=== PATIENT | female | born 1980 | race Caucasian/White ===

== ENCOUNTER 2021-04-22 05:53 | Inpatient (IN) ==
--- NOTE | 2021-04-14 13:33 | Anesthesiology Consultation ---
Date of Service April 14, 2021 Assessment & Plan (1) Encounter for pre-operative examination: Chart Review Chart Review: entry level finance initiated Per nursing assessment 04/14/2021, patient denies any recent travel. No known Covid infection in the past 90 days. Patient is fully vaccinated for Covid. No known Covid positive exposures or Covid related symptoms. Preop Covid testing scheduled 04/19/21= will await results History Surgery Operation Date: 04/22/21 07:30 Proposed Procedures p Repeat - Amado Guajardo MD Height/Weight Height: 5 ft 6 in Weight: 77.111 kg Allergies Allergy/AdvReac Type Severity Reaction Status Date / Time NSAIDS (Non-Steroidal Allergy hives Verified 04/14/21 11:52 Anti-Inflamma Medications Home Medications Medication Instructions Recorded Confirmed Last Taken albuterol 90 mcg/actuation aerosol 90 mcg INHALATION DIRECTED PRN 05/06/20 04/14/21 Unknown inhaler azelastine 137 mcg (0.1 %) nasal 1 spray INTRANASAL BID PRN 05/06/20 04/14/21 Unknown spray aerosol budesonide 32 mcg/actuation nasal 1 spray INTRANASAL DAILY PRN 05/06/20 04/14/21 Unknown spray cetirizine 10 mg capsule (All Day 10 mg PO BID 05/06/20 04/14/21 Unknown Allergy (cetirizine)) ferrous sulfate 325 mg (65 mg 325 mg PO QAM 04/14/21 04/14/21 Unknown iron) tablet (Iron (ferrous sulfate)) vitamins no.144-folic 2 tab PO QAM 04/14/21 04/14/21 Unknown acid 400 mcg chewable tablet () Past Medical History Medical History Asthma Aggravated by but only mild/stable, PRN inhaler approx once a week Esophagitis No meds per pt> diet control GERD (gastroesophageal reflux disease) History of anesthesia reaction with last , severe migraine afterward History of herpes zoster Iron deficiency anemia Very mild > re-test was WNL Migraine Past Family History Family History Grandmother Diabetes Grandfather Diabetes Past Surgical History Surgical History History of section x1 History of colonoscopy History of dilatation and curettage History of esophagogastroduodenoscopy (EGD) [place] teeth extracted Social History Smoking Status: Never smoker Do You Dip or Chew Tobacco: No Hx Alcohol Use: No Hx Substance Use: No substance use type: does not use Testing Laboratory Results 04/02/21= WBC: 11.48 H/H: 12.2/37.5 PLATELETS: 198
[2021-04-22] MEDS ORDERED: LACTATED RINGER'S 1,000 ML IV SCH ×2 (06:00→10:00)
[2021-04-22] MEDS ORDERED: CITRIC ACID/SODIUM CITRATE 15 ML UDC PO SCH ×2 (06:00)
[2021-04-22] MEDS ORDERED: ceFAZolin 2000MG 2,000 MG/15 ML SYR IV SCH (06:00)
[2021-04-22 06:46] LABS: Basophils # (auto) 0.02 K/uL (0-0.2); Basophils % (auto) 0.2 %; Eosinophils # (auto) 0.36 K/uL (0-0.5); Eosinophils % (auto) 3.3 %; Hematocrit (blood only) 36.9 % (37-47); Hemoglobin 12.6 g/dL (12.0-16.0); Immature Granulocytes # (auto) 0.03 K/uL (0.00-0.02); Immature Granulocytes % (auto) 0.3 %; Lymphocytes # (auto) 2.22 K/uL (1.2-3.4); Lymphocytes % (auto) 20.2 %; Mean Corpuscular Hemoglobin 31.4 pg (25-34); Mean Corpuscular Hgb Conc 34.1 g/dL (32-36); Mean Platelet Volume 10.3 fL (7.4-10.4); Monocytes # (auto) 1.07 K/uL (0.11-0.59); Monocytes % (auto) 9.7 %; Neutrophils # (auto) 7.31 K/uL (1.4-6.5); Neutrophils % (auto) 66.3 %; Platelet Count 181 K/uL (130-400); RDW Standard Deviation 43.7 fL (36.4-46.3); Red Blood Count 4.01 M/uL (4.2-5.4); White Blood Count 11.01 K/uL (4.8-10.8)
[2021-04-22] MEDS ORDERED: ONDANSETRON INJ 2 MG/ML 2 ML VIAL ONE (06:51)
[2021-04-22] MEDS ORDERED: PHENYLEPHRINE 100MCG/ML 5ML SYR ONE (06:51)
[2021-04-22] MEDS ORDERED: OXYTOCIN 10 UNITS/ML 10ML VIAL ONE (06:51)
[2021-04-22] MEDS ORDERED: MoRPHine SULFATE PF 1 MG/ML 10 ML AMP/VIAL ONE (06:51)
[2021-04-22] MEDS ORDERED: fentaNYL citrate 100 MCG/2 ML VIAL ONE (06:51)
--- NOTE | 2021-04-22 07:19 | History & Physical Bridge Note ---
Date of Service April 22, 2021 History & Physical Bridge Note I have examined the patient, reviewed the History & Physical and in the interval since the performance of the History & Physical I have noted the following changes of clinical significance: no changes noted
--- NOTE | 2021-04-22 07:25 | History & Physical Report ---
Date of Service April 22, 2021 Assessment & Plan (1) S/P repeat low transverse : Plan: Repeat Admission and Anticipated Discharge Date Admission Date: April 22, 2021 History of Present Illness Chief Complaint: repeat Primary Care Provider: Unknown Unknown 40 F [id number] at 39 weeks for elective repeat Allergies Allergy/AdvReac Type Severity Reaction Status Date / Time NSAIDS (Non-Steroidal Allergy hives Verified 04/14/21 11:52 Anti-Inflamma Home Medications Medication Instructions Recorded Confirmed Type cetirizine 10 mg capsule (All Day 10 mg PO BID 05/06/20 04/22/21 History Allergy (cetirizine)) ferrous sulfate 325 mg (65 mg 325 mg PO QAM 04/14/21 04/22/21 History iron) tablet (Iron (ferrous sulfate)) vitamins no.144-folic 2 tab PO QAM 04/14/21 04/22/21 History acid 400 mcg chewable tablet () Patient History Medical History Asthma Aggravated by but only mild/stable, PRN inhaler approx once a week Esophagitis No meds per pt> diet control GERD (gastroesophageal reflux disease) History of anesthesia reaction with last , severe migraine afterward History of herpes zoster Iron deficiency anemia Very mild > re-test was WNL Migraine Surgical History History of section x1 History of colonoscopy History of dilatation and curettage History of esophagogastroduodenoscopy (EGD) [place] teeth extracted Family History Grandmother Diabetes Grandfather Diabetes Social History Smoking Status: Never smoker Second Hand Exposure: No; Do You Dip or Chew Tobacco: No; Tobacco Cessation Education Requested by Patient: No Hx Alcohol Use: No Hx Substance Use: No Preferred Language: Nauruan Communication Ability: Effective Brasswind Instrument Repairer Required: No Beliefs That Will Affect Care: None marital status: Current Living Situation: Spouse and Family Other Information That Helps Us Care for You: No Feels Safe at Home: Yes Safety Concerns: Feels Safe At This Time Assistive Devices: None 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 History history of Herpes Review of Systems All systems reviewed & are unremarkable except as noted in HPI & below Physical Exam Constitutional: WD/WN, vitals as above comfortable Eyes: PERRL, conjunctivae normal, anicteric sclerae Respiratory: normal respiratory effort, lungs clear to auscultation Cardiovascular: RRR, no murmur, no edema Skin: no rashes, warm and dry Neurologic: patellar DTR's 2+ bilat, sensation intact Psychiatric: A+Ox3, euthymic affect Genitourinary: OB Exam Monitor Tracing: + external FHT monitor used, + external uterine monitor used, + category I and + normal FHT variability Results & Data ([facility]) Vital Signs (Past 12 Hours) Vital Signs Temp Pulse Resp BP Pulse Ox 04/22/21 07:13 73 100 04/22/21 07:12 82 132/81 04/22/21 07:08 77 100 04/22/21 07:03 89 100 04/22/21 06:58 83 100 04/22/21 06:53 85 99 04/22/21 06:48 84 100 04/22/21 06:43 82 100 04/22/21 06:07 36.8 C 18 04/22/21 06:02 87 108/69 Laboratory Results 04/22/21 06:12 WBC 11.01 H RBC 4.01 L Hgb 12.6 Hct 36.9 L MCV 92.0 MCH 31.4 MCHC 34.1 RDW Std Deviation 43.7 RDW Coeff of Carl 13.0 Plt Count 181 MPV 10.3 Immature Gran % (Auto) 0.3 Neut % (Auto) 66.3 Lymph % (Auto) 20.2 [place] % (Auto) 9.7 Eos % (Auto) 3.3 Baso % (Auto) 0.2 Neut # (Auto) 7.31 H Lymph # (Auto) 2.22 [place] # (Auto) 1.07 H Eos # (Auto) 0.36 Baso # (Auto) 0.02 Immature Gran # (Auto) 0.03 H
[2021-04-22] MEDS ORDERED: ePHEDrine sulfate 50 MG/ML SYR ONE (08:30)
[2021-04-22] MEDS ORDERED: ePHEDrine sulfate 50 MG/ML AMP IV PRN (08:33)
[2021-04-22] MEDS ORDERED: ONDANSETRON INJ 2 MG/ML 2 ML VIAL IV PRN (08:33)
[2021-04-22] MEDS ORDERED: NALBUPHINE HCL INJ 10 MG/ML AMP IV PRN (08:33)
[2021-04-22] MEDS ORDERED: diphenhydrAMINE 50 MG/ML VIAL IV PRN (08:33)
[2021-04-22] MEDS ORDERED: NALOXONE HCL 1 MG in SODIUM CHLORIDE 0.9% 1000ML 1,000 ML IV PRN (08:33)
[2021-04-22] MEDS ORDERED: MoRPHine SULFATE 2 MG/ML CARP IV PRN (08:33)
[2021-04-22] MEDS ORDERED: LACTATED RINGER'S 500 ML IV PRN (08:33)
[2021-04-22] MEDS ORDERED: NALOXONE HCL 0.08 MG in SYRINGE 1.8 ML IV PRN (08:33)
[2021-04-22] MEDS ORDERED: MoRPHine SULFATE PF 1 MG/ML 10 ML AMP/VIAL INT SPINAL ONE (08:33)
[2021-04-22] MEDS ORDERED: NALOXONE HCL 0.4 MG/1 ML VIAL/CARP IV PRN (08:33)
[2021-04-22] MEDS ORDERED: DC INTRASPINAL MORPHINE SCH (08:45)
[2021-04-22] MEDS ORDERED: SODIUM CHLORIDE 0.9% 1000ML 1,000 ML IV SCH (08:45)
[2021-04-22] MEDS ORDERED: NO NARCOTICS OR SEDATIVES SCH (08:45)
--- NOTE | 2021-04-22 09:18 | Post Operative Brief Note ---
Immediate Post Op Note v1 Date of Surgery April 22, 2021 Pre & Post Diagnosis Operation Date: 04/22/21 07:30 Pre-Op Diagnosis: elective repeat section Post-Op Diagnosis: same I identified the patient and participated in the time-out.: Yes Procedure Operation Date: 04/22/21 07:30 Actual Procedures p Section in LD for live male infant at 0815 - Amado Guajardo MD Surgeon Amado Guajardo MD Service Engineer KATEY Smith Estimated Blood Loss 500 Findings Consistent with Post-Op Diagnosis LIve male Apgars 8/9 weight 8 lb. 2.5 oz. vertex Fluids LR 1500 ml Specimens cord blood placenta Drains Gupta Catheter Anesthesia Type Spinal Complications none Disposition Accompanied Patient To Recovery: Yes Disposition: L&D Overlapping Procedure I was present for: the critical portions of procedure. I was immediately available: during the entire case. Back up surgeon: was not required during procedure.
[2021-04-22] MEDS ORDERED: SENNA 8.6 MG TAB PO PRN (10:00)
[2021-04-22] MEDS ORDERED: MAGNESIUM HYDROXIDE SUSP 30 ML UDC PO PRN (10:00)
[2021-04-22] MEDS ORDERED: HYDROCORTISONE ACETATE 25 MG SUPP PR PRN (10:00)
[2021-04-22] MEDS ORDERED: DIPHTHERIA/TETANUS/PERTUSSIS 0.5 ML SYR/VIAL IM ONE (10:00)
[2021-04-22] MEDS ORDERED: BENZOCAINE 20% AER SPR 82.5 GM CAN EXT PRN (10:00)
--- NOTE | 2021-04-22 10:29 | Anesthesiology Progress Note ---
Date of Service April 22, 2021 Anesthesia Post Procedure Vital Signs Vital Signs: Temp Pulse Resp BP Pulse Ox 04/22/21 10:27 76 95/59 L 04/22/21 10:24 86 100 04/22/21 10:19 88 95/52 L 100 04/22/21 10:14 95 H 100 04/22/21 10:09 86 100 04/22/21 10:07 36.5 C 95 H 18 113/57 L 04/22/21 10:04 88 100 04/22/21 09:59 75 100 04/22/21 09:57 94 H 18 103/69 04/22/21 09:54 111 H 100 04/22/21 09:49 81 20 100 04/22/21 09:47 171 H 96/63 L 04/22/21 09:44 77 100 04/22/21 09:39 102 H 99 04/22/21 09:37 83 18 91/54 L 04/22/21 09:34 91 H 99 04/22/21 09:29 90 16 99/53 L 98 04/22/21 09:24 78 99 04/22/21 09:19 89 18 103/58 L 04/22/21 09:16 81 96 04/22/21 09:10 79 100 04/22/21 09:06 36.4 C L 90 18 121/84 04/22/21 09:05 91 H 100 04/22/21 07:38 68 100 04/22/21 07:33 85 100 04/22/21 07:28 86 100 04/22/21 07:23 87 100 04/22/21 07:13 73 100 04/22/21 07:12 82 132/81 04/22/21 07:08 77 100 04/22/21 07:03 89 100 04/22/21 07:00 36.6 C 20 04/22/21 06:58 83 100 04/22/21 06:53 85 99 04/22/21 06:48 84 100 04/22/21 06:43 82 100 04/22/21 06:07 36.8 C 18 04/22/21 06:02 87 108/69 Transfer of Care Handoff Completed per policy Notes Mental Status: alert / awake / arousable and participated in evaluation Patient Amnestic to Procedure: No Nausea / Vomiting: adequately controlled Pain: adequately controlled Airway Patency, RR, SpO2: stable & adequate BP & HR: stable & adequate Hydration State: stable & adequate Neuraxial Anesthesia: was administered and sensory block is resolving Anesthetic Complications: no major complications apparent and Pt Satisfied with anesthetic care
--- NOTE | 2021-04-22 11:38 | Operative Report (OR) ---
DATE OF SURGERY: 04/22/2021. PREOPERATIVE DIAGNOSIS: Term elective repeat . POSTOPERATIVE DIAGNOSIS: Term elective repeat . PROCEDURE: Repeat section, low segment transverse. SURGEON: Amado Guajardo MD GRAIN DRIER OPERATOR: KATEY Smith ANESTHESIA: Spinal. CLINICAL HISTORY: The patient is a 40-year-old female, para 1-0-1-1, at 39 weeks and 2 days, admitted for an elective repeat section. The patient declines a trial of labor. Consents were signed prior to start of the procedure. The risks, benefits, and alternatives of the procedure were explained. Antibiotics were given preop and a timeout was called prior to the start of the procedure. DESCRIPTION OF PROCEDURE: Under satisfactory spinal anesthesia, the patient was tested, prepped and draped in the usual sterile fashion. A low Pfannenstiel incision through a prior scar was then made entering into the abdominal cavity in successive layers without difficulty upon entering into the lower uterine segment. A bladder flap was then made with sharp dissection down with Metzenbaum scissors. A low segment transverse incision over the lower uterine segment was made. The incision was nicked. Amniotic sac was noted to be clear. The incision was widened in the AP diameter. The infant was then delivered from the vertex presentation with the aid of fundal pressure, delivering a live male in the vertex presentation with Apgars of 8 and 9, 8 pounds 2-1/2 ounces with a 1-minute cord delay. Cord blood was obtained. Placenta delivered spontaneously and intact. The uterus was then exteriorized. Ring forceps were then placed on both angles in the inferior margin and then another ring was used to dilate the cervix. The uterus was then cleared of all clots and debris. Uterus was closed in a double layer closure starting with a 0 Vicryl suture in a continuous interlocking fashion followed by a second imbricating suture of 0 Vicryl suture. Tubes and ovaries bilaterally were found to be within normal limits. The contents of the pelvic and abdominal cavity were then irrigated to clear. The initial sponge, needle, and instrument count were found to be correct. The uterus was then placed back into the normal anatomical position. The gutters were inspected, no active bleeding. The fascia was then reapproximated from both ends using 0 Vicryl suture in a continuous fashion. Subcuticular space was irrigated, Bleeders were cauterized. Subcuticular space was closed with 2-0 plain suture, followed by 4-0 Monocryl suture for skin. Steri-Strips and Telfa and dressing were applied. The final sponge, needle, and instrument counts were found to be correct. EBL 500 mL. The patient was then placed supine on a stretcher and taken to Recovery Room in stable condition. Please note that KATEY Smith was needed for assistance for help with surgery, retraction for exposure, abdominal pressure to get the baby out and help at closure of the abdomen. Job ID: [id number] [facility]
[2021-04-22] MEDS: ACETAMINOPHEN 1,000 MG/100 ML VIAL IV PRN ×2 (12:00→20:57)
[2021-04-22] MEDS ORDERED: OXYTOCIN 20 UNITS in LACTATED RINGER'S 1,000 ML IV SCH (12:00)
[2021-04-22] MEDS: SIMETHICONE 80 MG CHEW PO SCH ×3 (12:27→20:57)
[2021-04-22] MEDS: CETIRIZINE HCL 10 MG TABLET PO SCH ×2 (14:33→22:13)
[2021-04-22] MEDS: DOCUSATE SODIUM 100 MG CAP PO SCH (20:57)
[2021-04-23] MEDS ORDERED: ONDANSETRON INJ 2 MG/ML 2 ML VIAL IV PRN (02:34)
[2021-04-23] MEDS ORDERED: diphenhydrAMINE Capsule 25 MG CAP PO PRN (02:34)
[2021-04-23] MEDS ORDERED: diphenhydrAMINE 50 MG/ML VIAL IV PRN (02:34)
[2021-04-23] MEDS ORDERED: PROMETHAZINE HCL 25 MG in SODIUM CHLORIDE 0.9% 50 ML IV PRN (02:34)
[2021-04-23] MEDS ORDERED: oxyCODONE HCL IR 5 MG TAB (IMMEDIATE RELEASE) PO PRN ×2 (04:04→08:20)
[2021-04-23] MEDS ORDERED: ACETAMINOPHEN 325 MG TAB PO PRN (04:06)
[2021-04-23 07:13] LABS: Basophils # (auto) 0.02 K/uL (0-0.2); Basophils % (auto) 0.1 %; Eosinophils # (auto) 0.27 K/uL (0-0.5); Eosinophils % (auto) 1.7 %; Hematocrit (blood only) 27.2 % (37-47); Hemoglobin 9.2 g/dL (12.0-16.0); Immature Granulocytes # (auto) 0.05 K/uL (0.00-0.02); Immature Granulocytes % (auto) 0.3 %; Lymphocytes # (auto) 1.63 K/uL (1.2-3.4); Mean Corpuscular Hemoglobin 31.2 pg (25-34); Mean Corpuscular Hgb Conc 33.8 g/dL (32-36); Mean Corpuscular Volume 92.2 fL (80-100); Mean Platelet Volume 10.1 fL (7.4-10.4); Monocytes # (auto) 1.66 K/uL (0.11-0.59); Monocytes % (auto) 10.2 %; Neutrophils # (auto) 12.63 K/uL (1.4-6.5); Neutrophils % (auto) 77.7 %; Platelet Count 150 K/uL (130-400); RDW Standard Deviation 44.1 fL (36.4-46.3); Red Blood Count 2.95 M/uL (4.2-5.4); White Blood Count 16.26 K/uL (4.8-10.8)
[2021-04-23] MEDS ORDERED: FERROUS SULFATE 325 MG TAB PO SCH (08:00)
[2021-04-23] MEDS: ACETAMINOPHEN 1,000 MG/100 ML VIAL IV PRN (08:02)
[2021-04-23] MEDS ORDERED: MAGNESIUM HYDROXIDE SUSP 30 ML UDC PO PRN (08:14)
--- NOTE | 2021-04-23 08:14 | Obstetrical Progress Note ---
Date of Service April 23, 2021 Assessment & Plan Admission and Anticipated Discharge Date Admission Date: April 22, 2021 Subjective Patient is seen and examined. She feels well, no complaints other than migraine. Incisional Pain is under control with oral/ IV meds. Ambulating without dizziness Voiding without difficulty Tolerating regular diet with out N&V Flatus + BM NEG Bleeding is minimal No fever/ chills/ CP/ SOB/ N&V/ Leg pain Breast feeding without problems Vital Signs Temp Pulse Pulse Resp BP BP Pulse Ox 04/23/21 07:30 37.1 C 92 H 18 94/63 L 100 04/23/21 03:15 37.1 C 92 H 18 94/63 L 04/23/21 02:40 16 96 04/23/21 01:40 16 98 04/23/21 00:40 16 98 04/22/21 23:40 37.6 C H 91 H 16 93/54 L 96 04/22/21 22:20 20 98 04/22/21 21:00 36.6 C 94 H 20 92/57 L 99 04/22/21 20:30 20 98 Intake & Output 04/22/21 04/23/21 04/23/21 22:59 06:59 14:59 Intake Total 1093.75 / 3693.75 Output Total 1700 / 4825 2700 / 4825 Balance -606.25 / -1131.25 -2700 / -1131.25 Intake: IV 1093.75 / 2193.75 Acetaminophen 1,000 mg In 100 100 / 200 ml @ 400 mls/hr IV Q8H PRN Rx#: [id number] Oxytocin 20 units In Lactated 993.75 / 993.75 Ringer's 1,000 ml @ 125 mls/hr IV .Q8H1M FRANK Rx#:[id number] Output: Urine 50 / 50 Urine Amount (Catheter) 1700 / 4775 2650 / 4775 Gupta/Indwelling 1700 / 4775 2650 / 4775 Lab Results 04/22/21 04/22/21 04/23/21 Range/Units 06:09 06:12 06:35 WBC 11.01 H 16.26 H (4.8-10.8) K/uL RBC 4.01 L 2.95 L (4.2-5.4) M/uL Hgb 12.6 9.2 L D (12.0-16.0) g/dL Hct 36.9 L 27.2 L (37-47) % MCV 92.0 92.2 (80-100) fL MCH 31.4 31.2 (25-34) pg MCHC 34.1 33.8 (32-36) g/dL RDW Std Deviation 43.7 44.1 (36.4-46.3) fL RDW Coeff of Carl 13.0 13.0 (11.5-14.5) % Plt Count 181 150 (130-400) K/uL MPV 10.3 10.1 (7.4-10.4) fL Immature Gran % (Auto) 0.3 0.3 % Neut % (Auto) 66.3 77.7 % Lymph % (Auto) 20.2 10.0 % [place] % (Auto) 9.7 10.2 % Eos % (Auto) 3.3 1.7 % Baso % (Auto) 0.2 0.1 % Neut # (Auto) 7.31 H 12.63 H (1.4-6.5) K/uL Lymph # (Auto) 2.22 1.63 (1.2-3.4) K/uL [place] # (Auto) 1.07 H 1.66 H (0.11-0.59) K/uL Eos # (Auto) 0.36 0.27 (0-0.5) K/uL Baso # (Auto) 0.02 0.02 (0-0.2) K/uL Immature Gran # (Auto) 0.03 H 0.05 H (0.00-0.02) K/uL Blood Type O Positive Antibody Screen NEGATIVE PE: General: Alert, orientedx3, NAD CVS: S1S2 RRR Lungs; CTAB Abd: soft, NT, ND, BS+, fundus firm, below Umbilicus Incision/ Dressing: Clean, dry, intact Perineum intact, Lochia rubra minimal Ext; NT, no edema AP: 40 yo s/p C Section, pod# 1 VSS Afebrile doing well Hb 9, will start iron bid, colace, MOM Continue routine postop care IV tylenol for migraine Encourage ambulation, PO intake All questions were answered Results & Data ([facility]) Vital Signs (Past 12 Hours) Vital Signs Temp Pulse Pulse Resp BP BP Pulse Ox 04/23/21 07:30 37.1 C 92 H 18 94/63 L 100 04/23/21 03:15 37.1 C 92 H 18 94/63 L 04/23/21 02:40 16 96 04/23/21 01:40 16 98 04/23/21 00:40 16 98 04/22/21 23:40 37.6 C H 91 H 16 93/54 L 96 04/22/21 22:20 20 98 04/22/21 21:00 36.6 C 94 H 20 92/57 L 99 04/22/21 20:30 20 98
[2021-04-23] MEDS: oxyCODONE HCL IR 5 MG TAB (IMMEDIATE RELEASE) PO PRN ×3 (08:28→20:04)
[2021-04-23] MEDS: PRENATAL VITAMIN 1 TAB PO SCH (08:29)
[2021-04-23] MEDS: DOCUSATE SODIUM 100 MG CAP PO SCH ×2 (08:29→20:04)
[2021-04-23] MEDS: FERROUS SULFATE 325 MG TAB PO SCH ×2 (08:30→20:04)
[2021-04-23] MEDS: SIMETHICONE 80 MG CHEW PO SCH ×4 (08:30→20:03)
[2021-04-23] MEDS: CETIRIZINE HCL 10 MG TABLET PO SCH ×2 (08:31→20:05)
[2021-04-23] MEDS ORDERED: MAGNESIUM HYDROXIDE SUSP 30 ML UDC PO ONE (08:56)
[2021-04-23] MEDS ORDERED: NON-FORMULARY MEDICATION (Ferrous Sulfate [Iron (Ferrous Sulfate)] 325 mg (65 mg iron) Tab PO SCH (09:00)
[2021-04-23] MEDS ORDERED: MAGNESIUM OXIDE 400 MG TAB PO SCH (09:00)
[2021-04-23] MEDS ORDERED: NON-FORMULARY MEDICATION (Prenatal No.144-Folic Acid [Prenatal] 400 mcg Tablet,Chewable) PO SCH (09:00)
[2021-04-23] MEDS: ACETAMINOPHEN 500 MG TAB PO PRN (16:32)
[2021-04-23] MEDS ORDERED: bisacodyL 5 MG TABEC PO SCH (20:00)
[2021-04-24] MEDS: ACETAMINOPHEN 500 MG TAB PO PRN ×2 (00:17→08:47)
[2021-04-24] MEDS: oxyCODONE HCL IR 5 MG TAB (IMMEDIATE RELEASE) PO PRN ×3 (03:48→14:39)
[2021-04-24 06:52] LABS: Hematocrit (blood only) 25.3 % (37-47); Hemoglobin 8.6 g/dL (12.0-16.0)
[2021-04-24] MEDS: PRENATAL VITAMIN 1 TAB PO SCH (08:46)
[2021-04-24] MEDS: CETIRIZINE HCL 10 MG TABLET PO SCH (08:46)
[2021-04-24] MEDS: SIMETHICONE 80 MG CHEW PO SCH ×2 (08:47→12:27)
[2021-04-24] MEDS: DOCUSATE SODIUM 100 MG CAP PO SCH (08:47)
[2021-04-24] MEDS: FERROUS SULFATE 325 MG TAB PO SCH (08:47)
[2021-04-24] MEDS ORDERED: bisacodyL 10 MG SUPP PR PRN (09:13)
--- NOTE | 2021-04-24 10:20 | Obstetrical Progress Note ---
Date of Service April 24, 2021 Subjective Ambulation: ambulating normally Voiding: no voiding problems Passing Gas:: Yes Diet Tolerance:: regular diet Lochia:: Small Feeding Type:: breast feeding Current Pain Level(1-10): 0 doing well plans for d/c today Review of Systems All systems reviewed & are unremarkable except as noted in HPI & below Physical Exam Constitutional WD/WN, vitals as above incision c/d/i no edema neg Howie's for d/c f/u next week for incision check Results & Data ([facility]) Vital Signs (Past 12 Hours) Vital Signs Temp Pulse Resp BP Pulse Ox 04/24/21 08:00 36.3 C L 93 H 16 104/70 99 04/24/21 00:15 37.2 C 106 H 18 111/75 99
== END 2021-04-24 14:55 | disposition home or self-care (01) | DRG 788 ==
LOC: 4S1 05:53 → EDSTATUS 07:30 → 4S2 11:30